=== PATIENT | female | born 1975 | race Caucasian/White ===

== ENCOUNTER → 2019-03-03 | Outpatient (CLI) | payer OTHER ==
--- NOTE | 2019-03-03 12:05 | KCIC ---
Bilateral digital screening mammograms: Reason for examination: Routine screening. New baseline. Interpretation was made with the benefit of CAD. The skin and nipples show no abnormalities. No abnormal axillary lymph nodes are seen. The breast parenchyma is heterogeneously dense. (Breast density: Category C.) There is a circumscribed lesion in the 9:30 position 9 cm posterior to the nipple in the right breast which appears to measure approximately 1.5 cm in greatest dimension. There is also a nodule present within the dense parenchyma more anteriorly at the 9:00 position 4 cm from the nipple measuring 1.2 cm in greatest dimension further evaluation with ultrasound is recommended. There are no other new dominant masses, suspicious calcifications or architectural distortion. Impression: Nodular densities at the 9:30 position 9 cm from the nipple and at the 9:00 position 4 cm from the nipple in the right breast. These measure approximately 1.5 cm and 1.2 cm in greatest dimensions respectively. Recommend further evaluation with ultrasound. Your patient's mammogram demonstrates that she has dense breast tissue (breast density category C or D), which could hide abnormalities, and if she has other risk factors for breast cancer that have been identified, she might benefit from supplemental screening tests that may be suggested by you as her ordering physician. Dense breast tissue, in and of itself, is a relatively common condition. Therefore, this information is not provided to cause undue concern, but rather to raise your awareness and to promote discussion with your patient regarding the presence of other risk factors, in addition to dense breast tissue. Your patient's mammography results will be sent to her. BI-RAD Category 0: Incomplete. Needs additional imaging evaluation. "Our facility is accredited by the [employer] Mammography [employer]." This patient's information has been entered into a reminder system for the patient to be notified with the results of her examination and a target date for the next mammogram. Electronically signed by: Nuris Walker MD (03/03/2019 12:02 PM) [facility]
== END | disposition home or self-care (01) ==
LOC: KCIC MAMMO 09:46
PROVIDERS: ATTEND Family Medicine
DX: Z12.31 Encounter for screening mammogram for malignant neoplasm of breast (principal); N63.11 Unspecified lump in the right breast, upper outer quadrant
CPT/HCPCS: 77067

== ENCOUNTER → 2019-03-10 | Outpatient (CLI) | payer OTHER ==
--- NOTE | 2019-03-10 10:17 | KCIC ---
Right breast ultrasound: Reason for examination: Nodular densities on screening mammogram. Comparison is made to mammographic exam dated 03/03/2019. Ultrasound examination was performed with attention to the lateral right breast and right axilla. In the 9:30 position 7 cm from the nipple, there is a 1.5 cm simple cyst this corresponds to the density seen posteriorly. More anteriorly at the 9:00 position 1 cm from the nipple, there is focal ductal ectasia measuring 1.5 cm in length and 3 mm in width. No other cystic or solid nodules are seen. No abnormal appearing lymph nodes are seen in the axilla. IMPRESSION: Simple cyst at the 9:30 position 7 cm from the nipple and ductal ectasia at the 9:00 position 1 cm from the nipple. No other suspicious abnormality seen. Recommend 6 month follow-up with right breast mammograms and ultrasound. BI-RADS Category 3: Probably Benign. "Our facility is accredited by the [employer] Mammography [employer]." This patient's information has been entered into a reminder system for the patient to be notified with the results of her examination and a target date for the next mammogram. Electronically signed by: Nuris Walker MD (03/10/2019 10:14 AM) [facility]
== END | disposition home or self-care (01) ==
LOC: KCIC US 09:33
PROVIDERS: ATTEND Family Medicine
DX: N60.01 Solitary cyst of right breast (principal); N60.41 Mammary duct ectasia of right breast
CPT/HCPCS: 76641

== ENCOUNTER → 2019-08-31 | Outpatient (CLI) | payer OTHER ==
--- NOTE | 2019-08-31 10:37 | KCIC ---
RIGHT DIAGNOSTIC MAMMOGRAPHY AND BREAST ULTRASOUND History: Six-month follow-up Comparison: Bilateral mammogram March 03, 2019. Technique: Right digital mammogram views were obtained. Findings: Breast Tissue Density C : The breasts are heterogeneously dense, which may obscure small masses. Well-circumscribed mass in the right breast 9:30 C position is stable. There are no suspicious microcalcifications or architectural distortion. Real-time ultrasound imaging of the right breast is performed. Stable benign cyst at the 9:30 o'clock position 7 cm from the nipple measuring up to 1.4 cm. Ductal ectasia at the 9:00 position 1 cm from the nipple has decreased from prior study. There is no new finding. IMPRESSION: Stable right mammogram. Ultrasound findings in the right breast are benign. Recommend patient return to routine mammogram screening. BI-RADS category 2: Benign findings. The images were reviewed with computer-aided detection. Patient information is entered into the reminder system with a target due date for the next screening mammogram. Mammography is the most sensitive method for finding small breast cancers, but it does not detect them all and is not a substitute for careful clinical examination. A negative mammogram does not negate a clinically suspicious finding and should not result in delay in biopsying a clinically suspicious abnormality. "Our facility is accredited by the [employer] Mammography [employer]." Electronically signed by: Orestes Jaimes MD (08/31/2019 10:34 AM) [facility]
== END | disposition home or self-care (01) ==
LOC: KCIC MAMMO 09:15
PROVIDERS: ATTEND Family Medicine
DX: N60.01 Solitary cyst of right breast (principal); N60.41 Mammary duct ectasia of right breast
CPT/HCPCS: 76641; 77065

== ENCOUNTER → 2022-01-30 | Outpatient (CLI) | payer OTHER ==
--- NOTE | 2022-01-30 09:48 | KCIC ---
Bilateral digital screening mammograms with 3-D tomosynthesis: Reason for examination: Routine screening. Comparison is made to previous study dated 03/03/2019 and 08/31/2019. Bilateral mammograms in CC and oblique projections were obtained with 2-D imaging and 3-D tomosynthes is imaging on a Siemens Inspiration unit and reviewed on the workstation. Interpretation was made doreen samuels the benefit of CAD. The skin and nipples show no abnormalities. No abnormal axillary lymph nodes are seen. The breast par enchyma is heterogeneously dense. (Breast density: Category C.) There continues to be a circumscribed nodule at the 9:30 position of the right breast which is stable. There are no new dominant masses, s uspicious calcifications or architectural distortion. Impression: No evidence of malignancy. Recommend routine screening. Your patient's mammogram demonstrates that she has dense breast tissue (breast density category C or D), which could hide abnormalities, and if she has other risk factors for breast cancer that have bee n identified, she might benefit from supplemental screening tests that may be suggested by you as her ordering physician. Dense breast tissue, in and of itself, is a relatively common condition. Therefo re, this information is not provided to cause undue concern, but rather to raise your awareness and t o promote discussion with your patient regarding the presence of other risk factors, in addition to d ense breast tissue. Your patient's mammography results will be sent to her. BI-RAD Category 2: Benign. "Our facility is accredited by the [employer] Mammography [employer]." This patient's information has been entered into a reminder system for the patient to be notified wit h the results of her examination and a target date for the next mammogram. Electronically signed by: Nuris Walker MD (01/30/2022 9:45 AM) [id number]
== END ==
LOC: KCIC MAMMO 08:06
PROVIDERS: ATTEND Family Medicine
DX: Z12.31 Encounter for screening mammogram for malignant neoplasm of breast (principal)
CPT/HCPCS: 77063; 77067